=== PATIENT | female | born 2000 | race African-American/Black ===

== ENCOUNTER 2021-06-20 17:18 | Emergency (ER) | payer SELFPAY ==
[2021-06-20] MEDS ORDERED: Sucralfate 1 GM/10 ML UDCUP ONE (17:33)
[2021-06-20] MEDS ORDERED: Dicyclomine 20 MG TAB ONE (17:57)
[2021-06-20] MEDS ORDERED: Famotidine 20 MG TAB ONE (17:58)
[2021-06-20 18:12] LABS: Pregnancy Test - Urine (BHCG) Negative (Negative); Pregu Control Background? CLEAR/WHITE (CLR/WHITE); Pregu Control Bar Appear? YES (CONTROL BAR); Specific Gravity 1.015 (1.002-1.036)
[2021-06-20] MEDS ORDERED: Ondansetron PF 4 MG/2 ML Vial ONE (18:43)
[2021-06-20] MEDS ORDERED: Promethazine HCl 25 MG/ML VIAL ONE (19:24)
[2021-06-20 20:25] LABS: #Eosinphils 0.1 10x3/uL (0.0-0.5); #Monocytes 0.8 10x3/uL (0.0-1.1); %Basophils 0.3 % (0.0-2.0); %Eosinophils 1.3 % (0.0-6.0); %Monocytes 7.3 % (0.0-10.0); %Neutrophils 67.8 % (40.0-75.0); Hemoglobin 11.3 g/dL (12.0-15.5); Mean Corpuscular Hemoglobin 26.4 pg (27.0-33.0); Mean Corpuscular Volume 79.9 fl (81.6-98.3); Mean Platelet Volume 11.1 fl (7.4-10.4); Platelet Count 230 10x3/uL (150-450); RBC Distribution Width 13.8 % (11.5-14.5); Red Blood Cell (RBC) Count 4.28 10x6/uL (3.90-5.03); White Blood Cell (WBC) Count 10.3 10x3/uL (3.5-10.5)
[2021-06-20 20:29] LABS: ALT (SGPT) 12 U/L (8-55); AST (SGOT) 16 U/L (5-34); Albumin 3.7 g/dL (3.5-5.0); Alkaline Phosphatase 83 U/L (40-110); Anion Gap 16 mmol/L (10-20); BUN (Urea Nitrogen) 5 mg/dL (7.0-18.7); Bilirubin, Total 0.6 mg/dL (0.2-1.2); Calc. Creatinine Clearance 0 mL/min (70-130); Calcium 8.4 mg/dL (7.8-10.44); Carbon Dioxide 20 mmol/L (22-29); Chloride 111 mmol/L (98-107); Globulin 2.9 g/dL (2.4-3.5); Glucose 91 mg/dL (70-105); Lipase 4 U/L (8-78); Potassium 3.5 mmol/L (3.5-5.1); Protein, Total 6.6 g/dL (6.0-8.3); Sodium 143 mmol/L (136-145)
[2021-06-20] MEDS ORDERED: Promethazine HCl 25 MG/ML VIAL IVPB SCH (21:15)
[2021-06-20] MEDS ORDERED: Haloperidol Lactate 5 MG/ML VIAL ONE (23:13)
== END 2021-06-20 21:20 | disposition home or self-care (01) ==
LOC: CSHERS 17:18
DX: R10.13 Epigastric pain (principal); R11.2 Nausea with vomiting, unspecified; J90 Pleural effusion, not elsewhere classified; I10 Essential (primary) hypertension; E66.9 Obesity, unspecified
CPT/HCPCS: 74177; 80053; 81025; 83690; 85025; 87086; 93005; 96374; 96375; 96376; J0500; J1630; J2405; J2550

== ENCOUNTER 2021-06-20 22:00 | Emergency (ER) | payer SELFPAY | END 2021-06-20 23:17 | disposition home or self-care (01) | LOC: CSHERS 22:00 | DX: R10.12 Left upper quadrant pain (principal); E66.9 Obesity, unspecified; I10 Essential (primary) hypertension | CPT/HCPCS: 96372 ==